=== PATIENT | female | born 1955 ===

== ENCOUNTER → 2020-02-24 | Outpatient (CLI) | payer OTHER | LOC: PLD 07:40 → LAB SHORT 07:40 | DX: D48.5 Neoplasm of uncertain behavior of skin (principal) | CPT/HCPCS: 88342 ==

== ENCOUNTER → 2024-06-04 | Outpatient (CLI) | payer OTHER | LOC: LAB 09:17 → LAB SHORT 09:17 | DX: R21 Rash and other nonspecific skin eruption (principal) | CPT/HCPCS: 88312; 88313 ==